=== PATIENT | female | born 1960 ===

== ENCOUNTER 2016-10-21 23:20 | Emergency (ER) | payer OTHER, BC ==
[2016-10-21] MEDS ORDERED: Naproxen 550 mg Tab PO STA (23:50)
[2016-10-21] MEDS ORDERED: Naproxen 550 mg Tab PO ONE (23:57)
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
[2016-10-22 00:41] VITALS: BP 162/88; PULSE 88; RESP 18; TEMP 97.8
[2016-10-22 00:46] VITALS: O2SAT 97
--- NOTE | 2016-10-22 10:58 | RAD ---
PROCEDURE: Cervical Spine Radiographs. HISTORY: Posttraumatic pain COMPARISON: None. FINDINGS: BONES: Rotary scoliosis. DISC SPACES: Multilevel proliferative/degenerative changes primarily affecting lower cervical spine. SOFT TISSUES: Normal. No prevertebral soft tissue swelling. OTHER FINDINGS: None. IMPRESSION: No acute findings related to/accounting for the clinical presentation. Concordant results with the preliminary interpretation rendered by the emergency department physician procedure.
== END 2016-10-22 00:41 | disposition home or self-care (01) ==
LOC: C.ER 23:20
DX: S16.1XXA Strain of muscle, fascia and tendon at neck level, initial encounter (principal); V49.9XXA Car occupant (driver) (passenger) injured in unspecified traffic accident, initial encounter